=== PATIENT | female | born 2005 | race Caucasian/White ===

== ENCOUNTER 2024-04-30 17:48 | Emergency (ER) | payer OTHER ==
[2024-04-30 18:52] LABS: #Eosinphils 0.1 thou/uL (0.0-0.7); #Monocytes 0.8 thou/uL (0.11-0.59); %Basophils 0.3 % (0.0-1.0); %Monocytes 5.8 % (0.0-4.0); %Neutrophils 78.9 % (31.0-61.0); Hematocrit 44.3 % (36.0-47.0); Hemoglobin 14.4 g/dL (12.0-16.0); Mean Corpuscular HGB CONC 32.4 g/dL (32.0-36.0); Mean Corpuscular Hemoglobin 29.5 pg (25.0-35.0); Mean Corpuscular Volume 91.1 fl (78.0-98.0); Platelet Count 225 10x3/uL (130-400); RBC Distribution Width 10.8 % (11.5-14.5); Red Blood Cell (RBC) Count 4.86 mill/uL (4.00-5.20)
[2024-04-30] MEDS ORDERED: Ketorolac Tromethamine 30 MG (1 mL) VIAL ONE (18:53)
[2024-04-30] MEDS ORDERED: Sodium Chloride 0.9% 1,000 ML ONE (18:53)
[2024-04-30 19:09] LABS: ALT (SGPT) 17 U/L (8-55); AST (SGOT) 21 U/L (5-30); Albumin 4.6 g/dL (3.5-5.0); Alkaline Phosphatase 73 U/L (40-100); Anion Gap 16 mmol/L (10-20); BUN (Urea Nitrogen) 11 mg/dL (8.4-21.0); Bilirubin, Total 1.1 mg/dL (0.2-1.2); Calc. Creatinine Clearance 0 mL/min (70-130); Carbon Dioxide 22 mmol/L (22-29); Chloride 104 mmol/L (98-107); Estimated GFR 79; Globulin 3.3 g/dL (2.4-3.5); Glucose 103 mg/dL (70-105); Potassium 3.8 mmol/L (3.5-5.1); Protein, Total 7.9 g/dL (6.0-8.3); Sodium 138 mmol/L (136-145)
[2024-04-30 19:16] LABS: Bilirubin Negative (Negative); Blood, Urine Moderate (Negative); Clarity Clear (Clear); Glucose, Urine (Dipstick) Negative (Negative); Ketone, Urine Negative (Negative); Leukocyte Small (Negative); Nitrite Negative (Negative); Protein, Urine (Dipstick) 100 mg/dL (Neg-Trace); Urobilinogen 0.2 mg/dL (Less than 2); pH, Urine 6.5 (5.0-9.0)
[2024-04-30 19:20] LABS: Bacteria/HPF 1+ HPF (None Seen); CAUTI Indications for Culture Pelvic or flank pain; Squamous Epithelial 0-3 HPF (0-3)
[2024-04-30 19:21] LABS: Urine Culture Reflex Yes Yes
[2024-04-30] MEDS ORDERED: cefTRIAXone (ROCEPHIN) 1 GM VIAL ONE (19:34)
[2024-04-30] MEDS ORDERED: Sodium Chloride 0.9% 100 ML ONE (19:35)
== END 2024-04-30 20:30 | disposition home or self-care (01) ==
LOC: EDBD 17:48 → NAV ERS 17:48
DX: N10 Acute pyelonephritis (principal)
CPT/HCPCS: 80053; 81001; 83605; 85025; 87040; 87077; 87086; 87186; 96361; 96365; 96375; J0696; J1885; J3490; J7050